=== PATIENT | female | born 1965 | race Caucasian/White ===

== ENCOUNTER 2017-09-07 06:06 | Day surgery (SDC) | payer OTHER ==
[2017-09-06 09:07] VITALS: BMI 31.0
--- NOTE | 2017-09-07 01:37 | HP ---
HISTORY OF PRESENT ILLNESS: Ms. Gracia is a 52-year-old woman who since 04/15/2017 has searing pain in an S1 fashion down her left lower extremity since stepping awkwardly done of staircase. She has had an epidural steroid injection, which has not seemed to give her a great deal of relief. This is in the setting of an MRI from [facility] that reveals a left-sided L5 disk herniation that impinges upon the descending S1 nerve root on the left. I feel this matches well with the symptoms that she has been having. She is hopeful for possible surgical intervention at this time. PAST MEDICAL HISTORY: Significant for hypertension, diabetes, hypothyroidism, chronic pain syndrome. CURRENT MEDICATIONS: Lisinopril, metformin, Nature-Throid, Ambien, Belbuca, hydromorphone, Robaxin, Zofran, progesterone. ALLERGIES: To ADHESIVES, CODEINE, HYDROCODONE, PREDNISONE, MACRODANTIN, TOPAMAX, LYRICA, ERYTHROMYCI N, INDERAL. PAST SURGICAL HISTORY: Tonsillectomy, thyroidectomy, spinal fusion, tarsal tunnel release, pneumonec elvira. PHYSICAL EXAMINATION: Patient is alert and oriented x3. Gait is severely antalgic, briskly positive left lower extremity, straight leg raise. ASSESSMENT: Herniated disk with lumbar radiculopathy. PLAN: Dr. Ramachandran met with the patient, reviewed imaging and advocated for a left L5 diskectomy. He e xplained to the patient the risks, benefits, and alternatives to the procedure. The patient expresse d understanding and would like to move forward with surgery as discussed. I do believe the patient i s mentally competent and capable of making medical decisions for herself and we will move forward wit h surgery as planned. Rashi Bell PA-C dictating for Dr. Ramachandran.
[2017-09-07] MEDS ORDERED: Thrombin 5000 UNITS/5 ML VIAL ONE (06:23)
[2017-09-07] MEDS ORDERED: Bupivacaine HCl 0.5%/Epinephrine 1:200,000/PF 30 ml Vial ONE (06:23)
[2017-09-07] MEDS ORDERED: CEFAZOLIN/Water 2 GM/20 ML SYRINGE ONE ×2 (06:55→12:38)
[2017-09-07] MEDS ORDERED: Propofol 500 MG/50 ML VIAL ONE ×2 (06:58→08:08)
[2017-09-07] MEDS ORDERED: Fentanyl 250 MCG/5 ML VIAL ONE ×2 (06:58→08:58)
[2017-09-07] MEDS ORDERED: Ondansetron HCl/PF 4 MG/2 ML Vial IVP PRN (08:58)
--- NOTE | 2017-09-07 09:01 | OP ---
DATE OF PROCEDURE: 09/07/2017 SURGEON: Lokesh Ramachandran M.D. [facility] SPECIALIST: NONA Lucas. INDICATION: Pain. DIAGNOSIS: Left S1 radiculopathy. PROCEDURE: Left L5 discectomy. ANESTHESIA: General. TECHNIQUE: The patient was brought into the operating room and placed under general anesthesia. She was flipped from a supine or prone position on the operating room table. A linear incision was plan jess over the L5 segment. After prepping and draping and after an appropriate operative pause the inc ision was created. The soft tissues were swept away from midline. Self-retaining retractors were pl aced in the wound for optimal exposure. After confirming the appropriate level, C-arm fluoroscopy, a high-speed cutting drill bit as well as 2, 3 and 4 mm Kerrisons used to perform a laminectomy along the inferior aspect of L5 and superior aspect of S1. The laminectomy was extended laterally to encom pass the medial third of the facet joint. The descending S1 nerve root was identified and mobilized medially with a nerve root retractor. An 11 blade knife was used to perform an annulotomy. Disk mat erial was removed until the lateral recesses and the descending S1 nerve root were well decompressed. The wound was then irrigated. Hemostasis was maintained throughout. The wound was then closed in anatomic layers and a pressure dressing was applied. There were no known procedural complications.
[2017-09-07] MEDS ORDERED: Cyclobenzaprine 10 MG TAB ONE (09:26)
[2017-09-07] MEDS ORDERED: HYDROmorphone 0.5 MG/0.5 ML SYRINGE ONE ×6 (09:46→11:03)
[2017-09-07] MEDS ORDERED: Ondansetron HCl/PF 4 MG/2 ML Vial ONE (10:09)
[2017-09-07] MEDS ORDERED: Ketorolac Tromethamine 30 MG/ML VIAL ONE (10:58)
[2017-09-07] MEDS ORDERED: Promethazine HCl 25 MG/ML VIAL ONE (11:56)
[2017-09-07] MEDS ORDERED: Propofol 200 MG/20 ML VIAL ONE (15:46)
[2017-09-07] MEDS ORDERED: Glycopyrrolate 0.2 MG/ML 5 ML SYRINGE ONE (15:46)
== END 2017-09-07 13:25 | disposition home or self-care (01) ==
LOC: SDC 06:06
PROVIDERS: ATTEND Neurological Surgery
PROC: 0ST20ZZ Resection of Lumbar Vertebral Disc, Open Approach (ICD-10-PCS; principal; 2017-09-07)
PROC: 01NB0ZZ Release Lumbar Nerve, Open Approach (ICD-10-PCS; principal; 2017-09-07)
DX: M54.18 Radiculopathy, sacral and sacrococcygeal region (principal); I10 Essential (primary) hypertension; E11.9 Type 2 diabetes mellitus without complications; G89.4 Chronic pain syndrome; E89.0 Postprocedural hypothyroidism; Z79.84 Long term (current) use of oral hypoglycemic drugs; Z79.890 Hormone replacement therapy; Z79.899 Other long term (current) drug therapy; Z88.1 Allergy status to other antibiotic agents; Z88.5 Allergy status to narcotic agent; Z88.8 Allergy status to other drugs, medicaments and biological substances; Z91.048 Other nonmedicinal substance allergy status; Z98.1 Arthrodesis status
CPT/HCPCS: 76001; 96374; J0670; J1170; J1885; J2405; J2550; J2704; J3010

== ENCOUNTER 2023-07-01 05:48 | Day surgery (SDC) | payer BC ==
[2023-06-30 13:10] VITALS: BMI 33.3
[2023-07-01] MEDS ORDERED: PROPOFOL 20 ML ONE (06:28)
[2023-07-01] MEDS ORDERED: fentaNYL PF 100 MCG/2 ML SYRINGE ONE (06:28)
[2023-07-01] MEDS ORDERED: Midazolam HCl 2 mg/2 ml Vial ONE ×3 (06:29→11:25)
[2023-07-01] MEDS ORDERED: Ondansetron PF 4 MG/2 ML Vial ONE (06:31)
[2023-07-01] MEDS ORDERED: Lidocaine 1% PF 5 ML VIAL ONE (06:31)
[2023-07-01] MEDS ORDERED: Rocuronium Bromide 10 MG/ML (10ML VIAL) ONE (06:31)
[2023-07-01] MEDS ORDERED: EPINEPHrine 1 MG/ML VIAL ONE (06:34)
[2023-07-01] MEDS ORDERED: Bupivacaine PF 0.5% 30 ML VIAL ONE (06:34)
[2023-07-01] MEDS ORDERED: Thrombin 5000 UNITS/5 ML VIAL ONE (06:34)
[2023-07-01] MEDS ORDERED: Lidocaine 4% Topical Sol 50 ML BOT ONE (06:36)
[2023-07-01] MEDS ORDERED: Propofol 1,000 MG/100 ML VIAL IV ONE (06:36)
[2023-07-01] MEDS ORDERED: HYDROmorphone 0.5 MG/0.5 ML SYRINGE ONE ×9 (06:49→12:21)
[2023-07-01] MEDS ORDERED: Sodium Chloride 0.9% 100 ML ONE ×2 (06:50→14:03)
[2023-07-01] MEDS ORDERED: CEFAZOLIN 2 GM VIAL ONE ×2 (06:50→14:03)
[2023-07-01] MEDS ORDERED: Scopolamine 1 mg/72 hour Patch ONE (07:23)
[2023-07-01] MEDS ORDERED: SUGAMMADEX SODIUM 200 MG/2 ML VIAL ONE (07:57)
[2023-07-01] MEDS ORDERED: Labetalol HCl 100 MG/20 ML VIAL ONE (08:44)
[2023-07-01] MEDS ORDERED: fentaNYL 50 mcg/mL 1 mL Vial ONE ×3 (09:42→10:33)
[2023-07-01] MEDS ORDERED: Ibuprofen 200 MG TAB PO SCH (14:00)
[2023-07-01] MEDS ORDERED: Cyclobenzaprine 10 MG TAB ONE (14:02)
== END 2023-07-01 16:42 | disposition home or self-care (01) ==
LOC: SDC 05:48
PROVIDERS: ATTEND Neurological Surgery
PROC: 00NY0ZZ Release Lumbar Spinal Cord, Open Approach (ICD-10-PCS; principal; 2023-07-01)
DX: M51.16 Intervertebral disc disorders with radiculopathy, lumbar region (principal); G96.12 Meningeal adhesions (cerebral) (spinal); E78.5 Hyperlipidemia, unspecified; G89.29 Other chronic pain; M19.90 Unspecified osteoarthritis, unspecified site; I10 Essential (primary) hypertension; E07.9 Disorder of thyroid, unspecified; K21.9 Gastro-esophageal reflux disease without esophagitis; E11.9 Type 2 diabetes mellitus without complications; Z90.89 Acquired absence of other organs; Z98.890 Other specified postprocedural states; Z79.84 Long term (current) use of oral hypoglycemic drugs; Z79.899 Other long term (current) drug therapy; Z88.5 Allergy status to narcotic agent; Z88.8 Allergy status to other drugs, medicaments and biological substances; Z88.1 Allergy status to other antibiotic agents; Z91.048 Other nonmedicinal substance allergy status
CPT/HCPCS: 93005; 93010; J0171; J1170; J2250; J2405; J2704; J3010; J3490; S0020